=== PATIENT | female | born 1985 | race Hispanic/Latino ===

== ENCOUNTER 2017-02-20 20:28 | Emergency (ER) | payer BC ==
[2017-02-20 20:48] VITALS: BP 146/87; PULSE 111; RESP 18; TEMP 98.5; O2SAT 98
[2017-02-20] MEDS ORDERED: Ampicillin/Sulbactam 3 GM in Sodium Chloride 0.9% 100 ML IVPB STA (21:07)
[2017-02-20] MEDS ORDERED: Sodium Chloride 0.9% 1,000 ML IV STA (21:07)
[2017-02-20 21:31] LABS: BASO # 0.1 K/uL (0.0-0.2); BASO % 0.4 % (0.0-2.0); EOS % 0.4 % (0.0-4.0); LYMPH # 2.4 K/uL (1.0-4.3); LYMPH % 19.2 % (20.0-40.0); MEAN CELL VOLUME 94.2 fl (81.0-99.0); MEAN CORPUSCULAR HEMOGLOBIN 31.4 pg (27.0-31.0); MEAN CORPUSCULAR HGB CONC 33.4 g/dL (33.0-37.0); MEAN PLATELET VOLUME 7.4 fl (7.2-11.7); MONO # 1.2 K/uL (0.0-0.8); MONO % 9.8 % (0.0-10.0); NEUT # 8.9 K/uL (1.8-7.0); NEUT % 70.2 % (50.0-75.0); RED CELL DISTRIBUTION WIDTH 13.1 % (11.5-14.5); WHITE BLOOD COUNT 12.7 K/uL (4.8-10.8)
--- NOTE | 2017-02-20 22:07 | ED PDOC ---
HPI: Allergic Reaction Time Seen by Provider: 02/20/17 21:00 Chief Complaint (Nursing): Allergic Reaction Chief Complaint (Provider): Allergic Reaction History Per: Patient History/Exam Limitations: no limitations Onset/Duration Of Symptoms: Days (9) Current Symptoms Are (Timing): Still Present Associated Symptoms: Skin Rash Additional Complaint(s): Jana Vasques is a 31 y/o female presenting to the ER on 02/20/2017 with an allergic reaction. Patient states she has had a rash on her feet for nine days. Rash is isolated to the mid calf with radiation to her feet. Patient reports she has been on steroids and visited the ER multiple times for multiple injections without resolution of rash. She denies any respiratory symptoms, fever, chills, or other systemic symptoms. Patient has a known allergy to shellfish but is unsure if it is the cause of her rash. Past Medical History Reviewed: Historical Data, Nursing Documentation, Vital Signs Vital Signs: Last Vital Signs Temp 98.5 F 02/20/17 20:42 Pulse 111 H 02/20/17 20:42 Resp 18 02/20/17 20:42 BP 146/87 02/20/17 20:42 Pulse Ox 98 02/20/17 20:42 - Medical History PMH: No Chronic Diseases - Surgical History Surgical History: No Surg Hx - Family History Family History: States: Unknown Family Hx - Social History Current smoker - smoking cessation education provided: No Alcohol: None Drugs: Denies - Home Medications Home Medications: Ambulatory Orders Medication Instructions Recorded Clindamycin [Cleocin] 300 mg PO TID 10 Days 02/20/17 - Allergies Allergies/Adverse Reactions: Allergies Allergy/AdvReac Type Severity Reaction Status Date / Time shellfish derived Allergy SWELLING Verified 02/20/17 21:09 Review of Systems ROS Statement: Except As Marked, All Systems Reviewed And Found Negative Constitutional: Negative for: Fever, Chills Respiratory: Negative for: Cough, Shortness of Breath, Wheezing Physical Exam - Reviewed Nursing Documentation Reviewed: Yes Vital Signs Reviewed: Yes - Physical Exam Appears: Positive for: Non-toxic, No Acute Distress Head Exam: Positive for: ATRAUMATIC, NORMOCEPHALIC Skin: Positive for: Warm, Dry, Rash (noted on the feet- erythematous blanching rash to the dorsal feet bilat in a pseudo flip flop distribution ) Eye Exam: Positive for: Normal appearance, EOMI, PERRL ENT: Positive for: Normal ENT Inspection (oropharynx has no soft tissue swelling ) Neck: Positive for: Normal, Painless ROM, Supple Cardiovascular/Chest: Positive for: Regular Rate, Rhythm. Negative for: Murmur Respiratory: Positive for: Normal Breath Sounds. Negative for: Respiratory Distress Extremity: Positive for: Normal ROM. Negative for: Deformity Neurologic/Psych: Positive for: Alert, Oriented. Negative for: Motor/Sensory Deficits - Laboratory Results Result Diagrams: 02/20/17 21:25 - ECG O2 Sat by Pulse Oximetry: 98 Disposition - Clinical Impression Clinical Impression: Cellulitis - Disposition Disposition: Routine/Home Disposition Time: 23:00 Condition: STABLE Prescriptions: Clindamycin [Cleocin] 300 mg PO TID 10 Days Instructions: Cellulitis (ED) Forms: [employer] (Mongolian) Medical Decision Making ED Course and Treatment: 02/20/17 2300 Instructed patient to f/u with PMD in 2 days or return for worsening symptoms or new concerning symptoms. - Lab Interpretations Lab Results: 02/20/17 21:25 Lab Results 02/20/17 21:25: WBC 12.7 H, RBC 3.82, Hgb 12.0, Hct 36.0, MCV 94.2, MCH 31.4 H, MCHC 33.4, RDW 13.1, Plt Count 258, MPV 7.4, Neut % (Auto) 70.2, Lymph % (Auto) 19.2 L, Sumner % (Auto) 9.8, Eos % (Auto) 0.4, Baso % (Auto) 0.4, Neut # 8.9 H, Lymph # 2.4, Sumner # 1.2 H, Eos # 0.0, Baso # 0.1 - Medication Orders Current Medication Orders: Discontinued Medications Ampicillin Sodium/Sulbactam (Sodium 3 gm/ Sodium Chloride) 100 mls @ 100 mls/ hr IVPB STAT STA Stop: 02/20/17 22:06 Last Admin: 02/20/17 22:08 Dose: 100 mls/hr Sodium Chloride (Sodium Chloride 0.9%) 1,000 mls @ 1,000 mls/hr IV .Q1H STA Stop: 02/20/17 22:06 Last Admin: 02/20/17 21:31 Dose: 1,000 mls/hr Medical Decision Making Medical Decision Makin:00 Initial Impression- Cellulitis superimposed on top of allergic dermatitis Initial Plan- * Sodium Chloride 1,000 ml IV * UNASYN 3GM IV Q6 * Re-evaluate Documented by Lauren Steele, acting as a scribe for Odilon Dejesus MD. All medical record entries made by the Scribe were at my direction and personally dictated by me. I have reviewed the chart and agree that the record accurately reflects my personal performance of the history, physical exam, medical decision making, and the department course for this patient. I have also personally directed, reviewed, and agree with the discharge instructions and disposition.
== END 2017-02-20 23:40 | disposition home or self-care (01) ==
LOC: H.ER 20:28 → EDBD 20:28 → H.ER 23:40
DX: T78.40XA Allergy, unspecified, initial encounter (principal); L03.115 Cellulitis of right lower limb
CPT/HCPCS: 81025; 85025; 96361; 96365; 99282; J0295; J7040